=== PATIENT | male | born 1955 | race Caucasian/White ===

== ENCOUNTER → 2019-11-05 | Outpatient (CLI) | payer MEDICARE ==
[~2019-11-05] MED LIST: CALC600T60 PO; LUPR45IN IM; MULTCAP PO; VITA500079 PO; XGEVINJ SC; XTAN40CA PO
--- NOTE | 2019-11-05 14:49 | REP ---
REASON FOR EXAM: History of carcinoma of the prostate gland. There are no priors for comparison. After the intravenous administration of 22 mCi of technetium-99m MDP a total body bone scan was obtained. Photopenic defects are seen in each knee secondary to total knee prostheses. Minimal increased radionuclide accumulation is seen in the shoulders, elbows, and wrists in a degenerative type pattern. No other areas of abnormal increased or decreased radionuclide accumulation are seen in the imaged axial or appendicular skeleton. IMPRESSION: Degenerative type uptake pattern as described above with other findings. There is no compelling evidence for metastatic disease. Electronically Signed by Santy Moctezuma DO 11/05/2019 03:30 P
== END ==
LOC: M RAD 09:31
PROVIDERS: ATTEND Internal Medicine Hematology
DX: C61 Malignant neoplasm of prostate (principal)
CPT/HCPCS: 78306; A9503

== ENCOUNTER → 2020-04-24 | Outpatient (CLI) | payer MEDICARE ==
[2020-04-24 10:55] LABS: ALBUMIN 4.1 GM/DL (3.2-5.2); ALT/SGPT 25 U/L (12-78); BILIRUBIN,TOTAL 0.7 MG/DL (0.2-1.0); BLOOD UREA NITROGEN 17 MG/DL (7-18); CARBON DIOXIDE LEVEL 30 MEQ/L (21-32); CHLORIDE LEVEL 106 MEQ/L (98-107); CHOLESTEROL LEVEL 223 MG/DL (<200); CHOLESTEROL RISK RATIO 4.288 (<5); GLOMERULAR FILTRATION RATE > 60.0 (>49); GLUCOSE, FASTING 137 MG/DL (70-100); HDL CHOLESTEROL 52 MG/DL (>40); LDL CHOLESTEROL 112 MG/DL (<100); NON-HDL-C 171 MG/DL; POTASSIUM SERUM 4.4 MEQ/L (3.5-5.1); SODIUM LEVEL 141 MEQ/L (136-145); TOTAL PROTEIN 6.8 GM/DL (6.4-8.2); TRIGLYCERIDES LEVEL 295 MG/DL (<150)
--- NOTE | 2020-04-24 17:05 | ECHO ---
DATE OF STUDY: 04/24/2020 REFERRING PHYSICIAN: Dr. Josephine Yip INDICATION: Cardiac murmur, unspecified. HEIGHT: 6 feet 0 inches WEIGHT: 226 pounds 2-D MEASUREMENTS: Aortic annulus: 2.3 cm Left ventricle diastole: 7.3 cm Inferior vena cava: 1.3 cm Ventricular septum: 1.17 cm Posterior wall: 1.05 cm Left atrium: 5.0 cm Aortic root: 3.9 cm Proximal ascending aorta: 3.5 cm DOPPLER MEASUREMENTS: Very mild aortic regurgitation. Aortic valve velocity: 118 cm/sec LVOT velocity: 82.4 cm/sec LVOT VTI: 17.8 cm At least moderate mitral regurgitation. No mitral stenosis. Mitral E velocity: 88.1 cm/sec Mitral A velocity: 98.5 cm/sec Mitral deceleration time: 278 ms No tricuspid regurgitation. No pulmonic regurgitation. Pulmonary acceleration time: 160 ms MITRAL ANNULAR TISSUE DOPPLER: E prime septal: 7.0 cm/sec E prime lateral: 11.7 cm/sec DESCRIPTION: This was a 2-D, M-mode, color flow Doppler and pulsed wave Doppler examination and included mitral annular tissue Doppler. This was a moderately technically difficult echocardiogram. Rhythm was sinus with frequent PVCs. CONCLUSIONS: 1. Moderate left ventricular dilatation with normal LV wall thickness. Normal regional wall LV wall motion and wall thickening. Normal LV systolic function. Left ventricular ejection fraction (LVEF) 65% by visual estimate. Grade 1 LV diastolic dysfunction. 2. Moderately technically difficult visualization of the mitral valve. Appears to have borderline prolapse of the anterior mitral leaflet and mild prolapse of the posterior mitral leaflet. At least moderate mitral regurgitation with an eccentric mitral regurgitation jet directed anteriorly along the anterior mitral leaflet. 3. Moderate left atrial dilatation. 4. Mild aortic valve sclerosis of a 3-cusp aortic valve. Very mild aortic regurgitation. 5. Mild dilatation of the aortic root at the level of sinus of Valsalva (3.9 cm). ADDITIONAL COMMENTS AND RECOMMENDATIONS: I recommend further evaluation of mitral valve morphology and mitral regurgitation with a transesophageal echocardiogram.
== END ==
LOC: M CARPUL 09:06
PROVIDERS: ATTEND Family Medicine
DX: R01.1 Cardiac murmur, unspecified (principal); Z13.220 Encounter for screening for lipoid disorders; Z13.1 Encounter for screening for diabetes mellitus; I34.1 Nonrheumatic mitral (valve) prolapse